=== PATIENT | male | born 1970 | race Caucasian/White ===

== ENCOUNTER 2019-08-26 10:51 | Outpatient (CLI) | payer BC, SELFPAY ==
[2019-08-26 10:00] VITALS: BMI 29.9
--- NOTE | 2019-08-26 10:58 | ECG_ITS ---
NAME OF STUDY: TREADMILL STRESS TEST INDICATION: Chest Pain Baseline blood pressure of 123/77 mm Hg, heart rate 69 beats per minute. EKG showed normal sinus rhythm, normal axis with RSR' in V1. The patient exercised for 11 minutes on a standard [facility] protocol. Patient attained a maximum heart rate of 160 beats per minute(94 % of the maximum predicted heart rate) with a blood pressure at the peak exercise of 199/81 mm Hg. The EKG at the peak exercise revealed sinus tachycardia with no significant ST-T wave changes. Patient did not have any chest pain or any significant arrhythmias with the exercise During the recovery phase, there were no new changes. Blood pressure at the end of the recovery phase was 141/90 mm Hg with a heart rate of 95 beats per minute. CONCLUSION: 1. Normal EKG response to treadmill exercise. 2. No exercise-induced chest pain or cardiac arrhythmia. 3. Good exercise tolerance, attained a maximum of 13.5 METs. 4. Baseline normal blood pressure with normal response to exercise. Electronically Signed On 08-27-2019 16:20:56 CDT by June Benton M.D. [email or web address]
[2019-08-26 12:05] VITALS: BP 141/90; PULSE 91
== END 2019-08-26 10:52 | disposition home or self-care (01) ==
LOC: CDL 10:56
PROVIDERS: PCP Nurse Practitioner Family; Visit Provider Internal Medicine Cardiovascular Disease
DX: R07.9 Chest pain, unspecified (principal)
CPT/HCPCS: 93017

== ENCOUNTER → 2023-06-04 08:39 | Outpatient (BNVA) | payer BC, SELFPAY | PROVIDERS: PCP Nurse Practitioner Family; Visit Provider Nurse Practitioner Family | DX: Z13.1 Encounter for screening for diabetes mellitus (principal); E78.5 Hyperlipidemia, unspecified; Z12.5 Encounter for screening for malignant neoplasm of prostate | CPT/HCPCS: 80053; 80061; G0103 ==